=== PATIENT | female | born 1970 | race African-American/Black ===

== ENCOUNTER 2021-07-01 14:26 | Inpatient (IN) | payer MEDICAID, OTHER ==
[~2021-07-01] VITALS: Ht 172.7 cm; Wt 72.8 kg
[2021-07-01 16:07] LABS: COVID AG,FIA SOURCE NASOPHARYNGEAL
[2021-07-01 16:11] LABS: BASOPHILS % (AUTO) 1.4 % (0.0-2.0); EOSINOPHILS % (AUTO) 2.2 % (1.0-6.0); HEMATOCRIT 41.2 % (36-46); HEMOGLOBIN 14.2 g/dL (12.0-16.0); LYMPHOCYTES % (AUTO) 43.5 % (22.0-44.0); MEAN CORPUSCULAR HEMOGLOBIN 32.5 pg (26.0-34.0); MEAN CORPUSCULAR HGB CONC 34.4 G/dL (31.0-37.0); MEAN CORPUSCULAR VOLUME 95 fL (80-100); MONOCYTES # (AUTO) 0.5 K/uL (0.1-1.0); MONOCYTES % (AUTO) 10.3 % (2.0-9.0); NEUTROPHILS % (AUTO) 42.6 % (40.0-70.0); PLATELET COUNT (AUTO) 243 K/uL (150-450); RED BLOOD CELL COUNT(AUTO) 4.36 MIL/uL (4.00-5.20); RED CELL DISTRIBUTION WIDTH 13.5 % (11.5-14.5)
[2021-07-01 16:31] LABS: ALANINE AMINOTRANSFERASE 23 U/L (12-78); ALBUMIN 4.3 g/dL (3.4-5.0); ALKALINE PHOSPHATASE 101 U/L (46-116); ANION GAP 10 mmol/L (8-16); ASPARTATE AMINOTRANSFERASE 24 U/L (15-37); BILIRUBIN,TOTAL 0.7 mg/dL (0.1-1.0); CALCIUM, TOTAL 9.9 mg/dL (8.8-10.5); CARBON DIOXIDE 28 mmol/L (22-29); CHLORIDE 102 mmol/L (98-107); CREATININE 0.85 mg/dL (0.60-1.30); GLOMERULAR FILTR. RATE CALC > 60 mL/min (>60); GLUCOSE,RANDOM 89 mg/dL (70-110); SODIUM SERUM 140 mmol/L (136-145); TOTAL PROTEIN, SERUM 8.1 g/dL (6.4-8.2); UREA NITROGEN, BLOOD 8 mg/dL (7-18)
[2021-07-01 16:32] LABS: POTASSIUM 2.9 mmol/L (3.5-5.1)
[2021-07-01] MEDS ORDERED: POTASSIUM CHLORIDE 20 MEQ ER TABLET PO ONE (16:45)
[2021-07-01] MEDS ORDERED: GuaiFENesin/D-METHORPHAN [SUGAR-FREE] 200-20MG/10 ML SYRUP UDCUP PO PRN (17:30)
[2021-07-01] MEDS ORDERED: HydrOXYzine PAMOATE 50 MG CAPSULE PO PRN (17:30)
[2021-07-01] MEDS ORDERED: LORazepam 2 MG TABLET PO PRN (17:30)
[2021-07-01] MEDS ORDERED: OLANZapine 5 MG RAPDIS TABLET PO PRN (17:30)
[2021-07-01] MEDS ORDERED: ZOLPIDEM TARTRATE 10 MG TABLET PO PRN (17:30)
[2021-07-01] MEDS ORDERED: TUBERCULIN, PURIFIED PROTEIN DERIVATIVE 5 TU/0.1 ML SYRINGE ID ONE (17:30)
[2021-07-01] MEDS ORDERED: PROMETHAZINE HCL 25 MG TABLET PO PRN (17:30)
[2021-07-01] MEDS: OLANZapine 5 MG RAPDIS TABLET PO SCH (21:19)
[2021-07-01] MEDS: MELATONIN 5 MG TABLET PO SCH (21:19)
[2021-07-01] MEDS: THIAMINE 100 MG TABLET PO SCH (21:19)
[2021-07-01 21:40] VITALS: BP 168/114
[2021-07-01] MEDS: CloNIDine HCL 0.1 MG TABLET PO PRN (21:59)
[2021-07-01 23:13] VITALS: BP 134/87
[2021-07-02 07:14] LABS: HEMOGLOBIN A1C 5.6 % (3.8-5.6)
[2021-07-02 07:31] LABS: CHOL/HDL RATIO 1.9 (3.9-5.7); FREE T4 (FREE THYROXINE) 1.66 ng/dL (0.76-1.46); THYROID STIMULATING HORMONE 0.72 uIU/mL (0.36-3.74)
[2021-07-02] MEDS: CloNIDine HCL 0.1 MG TABLET PO PRN (08:11)
[2021-07-02] MEDS: MULTIVITAMINS WITH MINERALS, THERAPEUTIC TABLET PO SCH (08:12)
[2021-07-02] MEDS: OMEGA-3/DHA/EPA/FISH OIL 1,000 MG CAPSULE PO SCH (08:24)
[2021-07-02] MEDS: AmLODIPine BESYLATE 10 MG TABLET PO SCH (08:24)
[2021-07-02] MEDS: THIAMINE 100 MG TABLET PO SCH ×2 (08:24→17:14)
[2021-07-02] MEDS: FOLIC ACID 1 MG TABLET PO SCH (08:25)
[2021-07-02] MEDS: NALTREXONE HCL 50 MG TABLET PO SCH (08:25)
[2021-07-02] MEDS ORDERED: AmLODIPine BESYLATE 10 MG TABLET PO SCH (09:00)
[2021-07-02 10:33] VITALS: BP 171/115
[2021-07-02 12:09] VITALS: BP 131/85
[2021-07-02 17:56] VITALS: BP 123/80
[2021-07-02] MEDS: MELATONIN 5 MG TABLET PO SCH (20:22)
[2021-07-02] MEDS: OLANZapine 5 MG RAPDIS TABLET PO SCH (20:22)
[2021-07-03 04:06] LABS: HEPATITIS C AB (EIA) <0.1 s/co ratio (0.0-0.9)
[2021-07-03] MEDS: OMEGA-3/DHA/EPA/FISH OIL 1,000 MG CAPSULE PO SCH (08:54)
[2021-07-03] MEDS: MULTIVITAMINS WITH MINERALS, THERAPEUTIC TABLET PO SCH (08:54)
[2021-07-03] MEDS: NALTREXONE HCL 50 MG TABLET PO SCH (08:55)
[2021-07-03] MEDS: THIAMINE 100 MG TABLET PO SCH ×2 (08:55→17:12)
[2021-07-03] MEDS: FOLIC ACID 1 MG TABLET PO SCH (08:55)
[2021-07-03] MEDS: AmLODIPine BESYLATE 10 MG TABLET PO SCH (08:55)
[2021-07-03 09:00] VITALS: BP 137/78
[2021-07-03 16:00] VITALS: BP 146/103
[2021-07-03] MEDS: MELATONIN 5 MG TABLET PO SCH (20:44)
[2021-07-03] MEDS: OLANZapine 5 MG RAPDIS TABLET PO SCH (20:44)
[2021-07-04] MEDS: OMEGA-3/DHA/EPA/FISH OIL 1,000 MG CAPSULE PO SCH (08:30)
[2021-07-04] MEDS: NALTREXONE HCL 50 MG TABLET PO SCH (08:30)
[2021-07-04] MEDS: AmLODIPine BESYLATE 10 MG TABLET PO SCH (08:31)
[2021-07-04] MEDS: FOLIC ACID 1 MG TABLET PO SCH (08:31)
[2021-07-04] MEDS: THIAMINE 100 MG TABLET PO SCH ×2 (08:31→16:35)
[2021-07-04] MEDS: MULTIVITAMINS WITH MINERALS, THERAPEUTIC TABLET PO SCH (08:32)
[2021-07-04 09:00] VITALS: BP 131/81
[2021-07-04 16:36] VITALS: BP 144/82
[2021-07-04] MEDS: MELATONIN 5 MG TABLET PO SCH (20:07)
[2021-07-04] MEDS ORDERED: OLANZapine 10 MG RAPDIS TABLET PO SCH (21:00)
[2021-07-04] MEDS ORDERED: OLAN10TA26 PO (21:29)
[2021-07-04] MEDS ORDERED: NALT50TA PO (21:29)
[2021-07-04] MEDS ORDERED: OMEG-108 PO (21:29)
[2021-07-04] MEDS ORDERED: MELA5TAB40 PO (21:29)
[2021-07-05] MEDS: AmLODIPine BESYLATE 10 MG TABLET PO SCH (08:32)
[2021-07-05] MEDS: THIAMINE 100 MG TABLET PO SCH (08:32)
[2021-07-05] MEDS: MULTIVITAMINS WITH MINERALS, THERAPEUTIC TABLET PO SCH (08:32)
[2021-07-05] MEDS: OMEGA-3/DHA/EPA/FISH OIL 1,000 MG CAPSULE PO SCH (08:32)
[2021-07-05] MEDS: NALTREXONE HCL 50 MG TABLET PO SCH (08:33)
[2021-07-05] MEDS: FOLIC ACID 1 MG TABLET PO SCH (08:33)
[2021-07-05 08:58] VITALS: BP 148/99
[2021-07-05] MEDS ORDERED: AMLO-257 PO (13:19)
== END 2021-07-05 12:47 | disposition home or self-care (01) | DRG 750 ==
LOC: EMS 14:32 → 3EI 17:23
PROVIDERS: ADMIT Psychiatry & Neurology Psychiatry; ATTEND Psychiatry & Neurology Psychiatry
DX: F20.0 Paranoid schizophrenia (principal); Z59.02 Unsheltered homelessness; E87.6 Hypokalemia; I10 Essential (primary) hypertension; Z20.822 Contact with and (suspected) exposure to COVID-19; F12.90 Cannabis use, unspecified, uncomplicated; F17.210 Nicotine dependence, cigarettes, uncomplicated; J44.9 Chronic obstructive pulmonary disease, unspecified; M17.11 Unilateral primary osteoarthritis, right knee; Z55.9 Problems related to education and literacy, unspecified; Z63.9 Problem related to primary support group, unspecified; Z65.3 Problems related to other legal circumstances
CPT/HCPCS: 80053; 80061; 80074; 83036; 84132; 84439; 84443; 85025; 86592; 99285; G0480; Q9967

== ENCOUNTER 2021-10-13 13:29 | Emergency (ER) | payer MEDICAID, OTHER ==
[~2021-10-13] VITALS: Ht 175.3 cm; Wt 74.1 kg
[~2021-10-13 13:29] MED LIST: AMLO-257 PO; MELA5TAB40 PO; NALT50TA PO; OLAN10TA26 PO; OMEG-135 PO
[2021-10-13] MEDS ORDERED: IBUPROFEN 600 MG TABLET PO ONE (14:00)
[2021-10-13 14:57] VITALS: BP 131/83
[2021-10-13] MEDS ORDERED: IBUP-2070 PO (14:58)
[2021-10-13] MEDS ORDERED: FLUT16H NASAL (15:26)
[2021-10-13] MEDS ORDERED: CHOL25TA4 PO (15:26)
[2021-10-13] MEDS ORDERED: VALS80TA32 PO (15:26)
[2021-10-13] MEDS ORDERED: VERA360C2 PO (15:26)
[2021-10-13] MEDS ORDERED: PROP20TA96 PO (15:26)
[2021-10-13] MEDS ORDERED: FURO40TA5 PO (15:26)
== END 2021-10-13 15:34 | disposition home or self-care (01) ==
LOC: EMS 13:29
DX: M25.571 Pain in right ankle and joints of right foot (principal); M19.90 Unspecified osteoarthritis, unspecified site; F41.9 Anxiety disorder, unspecified; F32.A Depression, unspecified; I10 Essential (primary) hypertension; F20.9 Schizophrenia, unspecified; F17.210 Nicotine dependence, cigarettes, uncomplicated; F12.90 Cannabis use, unspecified, uncomplicated; Z98.890 Other specified postprocedural states
CPT/HCPCS: 29540; 99283

== ENCOUNTER 2023-03-25 14:28 | Emergency (ER) | payer OTHER ==
[~2023-03-25] VITALS: Ht 172.7 cm; Wt 75.0 kg
[~2023-03-25 14:28] MED LIST changes: +CHOL25TA4 PO; +FLUT16SP NASAL; +FURO40TA5 PO; +IBUP-1492 PO; +PROP20TA96 PO; +VALS80TA32 PO; +VERA360C2 PO
[2023-03-25 14:31] VITALS: TEMP 98.2
[2023-03-25] MEDS ORDERED: IBUPROFEN 600 MG TABLET PO ONE (17:15)
[2023-03-25 18:28] VITALS: BP 130/86; PULSE 95; RESP 16
== END 2023-03-25 18:30 | disposition home or self-care (01) ==
LOC: EMS 14:31
DX: S93.602A Unspecified sprain of left foot, initial encounter (principal); I10 Essential (primary) hypertension; F20.9 Schizophrenia, unspecified; F41.9 Anxiety disorder, unspecified; F32.A Depression, unspecified; F17.210 Nicotine dependence, cigarettes, uncomplicated; F12.90 Cannabis use, unspecified, uncomplicated; Z98.890 Other specified postprocedural states; X58.XXXA Exposure to other specified factors, initial encounter; Y93.89 Activity, other specified; Y92.89 Other specified places as the place of occurrence of the external cause; Y99.8 Other external cause status
CPT/HCPCS: 99283